=== PATIENT | female | born 2000 | race Caucasian/White ===

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

== ENCOUNTER 2020-01-20 08:12 | Emergency (ER) | payer SELFPAY ==
--- NOTE | 2020-01-20 08:30 | ED.PDOC ---
History of Present Illness - General Time Seen by Provider: 01/20/20 08:15 Source: patient Exam Limitations: no limitations - History of Present Illness Comments: COUGH, NASAL CONGESTION, SORE THROAT X 2 DAYS, SHE HAS BEEN AROUND SOMEONE THAT WAS AROUND SOMEONE THAT HAD COVID AND SHE WANTS A COVID TEST AND HAS NO INSURANCE OR MONEY SO SHE CAME TO THE ER TO GET A COVID TEST. SHE DENIES ANY CHRONIC MEDICAL PROBLEMS. Timing/Duration: yesterday Cough Quality/Degree: dry cough Improving Factors: nothing Worsening Factors: nothing Associated Symptoms: cough Respiratory Risk Factors: no cause identified Allergies/Adverse Reactions: Allergies NO KNOWN ALLERGY Allergy (Verified 01/20/20 08:35) Home Medications: Ambulatory Orders Benzonatate Perles [Tessalon Perles] 200 mg PO TID PRN #20 cap 01/20/20 Review of Systems - Review of Systems Constitutional: States: no symptoms reported EENTM: States: no symptoms reported Respiratory: States: see HPI Cardiology: States: no symptoms reported Gastrointestinal/Abdominal: States: no symptoms reported Genitourinary: States: no symptoms reported Musculoskeletal: States: no symptoms reported Skin: States: no symptoms reported Neurological: States: no symptoms reported Endocrine: States: no symptoms reported Hematologic/Lymphatic: States: no symptoms reported Unable to Obtain Due To: condition Past Medical History (General) - Patient Medical History Hx Seizures: No Hx Dementia: No Hx Asthma: No Hx of COPD: No Hx Cardiac Disorders: No Hx Congestive Heart Failure: No Hx Diabetes: No Hx Gastroesophageal Reflux: No Hx Renal Disease: No - Vaccination History Hx Tetanus, Diphtheria Vaccination: No Hx Influenza Vaccination: No Hx Pneumococcal Vaccination: No - Social History Hx Tobacco Use: Yes Hx Alcohol Use: Yes Hx Substance Use: No Hx Substance Use Treatment: No Hx Depression: Yes - Female History Hx Last Menstrual Period: 03/31/16 - amenorhea since implanon -intradermal contraceptive Patient : No Family Medical History - Family History Mother Family History: No Known Living Status: Still Living Physical Exam - Physical Exam General Appearance: Alert, Anxious, Well Developed, Well Groomed, Well Hydrated, Well Nourished ENT Exam: normal ENT inspection, TMs normal, pharynx normal, nasal congestion Neck: non-tender, full range of motion, supple, normal inspection Respiratory: lungs clear, normal breath sounds, no respiratory distress, no accessory muscle use Cardiovascular/Chest: normal peripheral pulses, regular rate, rhythm, no edema, no gallop Gastrointestinal/Abdominal: normal bowel sounds, non tender, soft Extremity: normal range of motion, non-tender Skin Exam: normal color, warm/dry Lymphatic: no adenopathy Departure - Departure Clinical Impression: Viral URI with cough Time of Disposition: 09:00 Disposition: Discharge to Home or Self Care Condition: Good Instructions: Viral Upper Respiratory Infection, Adult (DC) Referrals: Dontrell Dowd MD [Primary Care Provider] - 1-2 Weeks Prescriptions: Benzonatate Perles [Tessalon Perles] 200 mg PO TID PRN #20 cap PRN Reason: Cough Home Medications: Ambulatory Orders Benzonatate Perles [Tessalon Perles] 200 mg PO TID PRN #20 cap 01/20/20
--- NOTE | 2020-01-20 08:53 | RAD ---
: 2000. TECHNIQUE: PA and lateral views of the chest. Comparison: October 27, 2089. Clinical history: COUGH. Heart size: Normal. Lungs: No acute consolidation. Pleura: No pleural effusion. No pneumothorax. Mediastinum and hayde: Unremarkable. Skeletal: Unremarkable. IMPRESSION: 1. No active disease in the chest. Electronically signed by: Brennon Johnson MD 01/20/2020 8:51 AM [facility]
[2020-01-20 09:19] VITALS: BP 127/74; TEMP 98; O2SAT 99
== END 2020-01-20 09:19 | disposition home or self-care (01) ==
LOC: ER 08:12
DX: J06.9 Acute upper respiratory infection, unspecified (principal); Z20.828 Contact with and (suspected) exposure to other viral communicable diseases; F32.9 Major depressive disorder, single episode, unspecified; Z87.891 Personal history of nicotine dependence